=== PATIENT | female | born 1960 | race Two or more races ===

== ENCOUNTER 2025-03-28 21:13 | Emergency (ER) | payer OTHER ==
[~2025-03-28] VITALS: Ht 162.6 cm; Wt 75.7 kg
[2025-03-28] MEDS ORDERED: SUMA100T16 PO (21:30)
[2025-03-28] MEDS ORDERED: HYDR12.55 PO (21:30)
[2025-03-28] MEDS ORDERED: AMIT25TA9 PO (21:30)
[2025-03-28] MEDS ORDERED: PROP20TA7 PO (21:30)
[2025-03-28] MEDS ORDERED: METOCLOPRAMIDE HCL 10 MG/2 ML VIAL ONE (22:55)
[2025-03-28] MEDS: IV NORMAL SALINE 1000 ML BAG IV ONE (22:58)
[2025-03-28] MEDS: METOCLOPRAMIDE HCL 10 MG/2 ML VIAL IV ONE (22:59)
[2025-03-28 23:00] LABS: BASOPHILS % (AUTO) 0.6 % (0.0-2.0); EOSINOPHILS % (AUTO) 0.2 % (0.0-7.0); HEMATOCRIT 43.5 % (31.2-41.9); HEMOGLOBIN 14.7 g/dL (10.9-14.3); LYMPHOCYTES # (AUTO) 1.3 K/uL (0.8-4.8); LYMPHOCYTES % (AUTO) 16.2 % (20.5-51.5); MEAN CORPUSCULAR HEMOGLOBIN 29.5 uug (24.7-32.8); MEAN CORPUSCULAR HGB CONC 34 g/dL (32.3-35.6); MEAN CORPUSCULAR VOLUME 87.6 fL (75.5-95.3); MONOCYTES # (AUTO) 0.4 K/uL (0.1-1.30); MONOCYTES % (AUTO) 4.6 % (0.0-11.0); NEUTROPHILS # (AUTO) 6.5 K/uL (1.8-8.9); NEUTROPHILS % (AUTO) 78.4 % (38.5-71.5); PLATELET COUNT (AUTO) 285 K/uL (179-408); RED BLOOD CELL COUNT(AUTO) 4.97 MIL/uL (3.63-4.92); RED CELL DISTRIBUTION WIDTH 13.8 % (12.3-17.7); WHITE BLOOD COUNT (AUTO) 8.3 K/uL (3.8-11.8)
[2025-03-28 23:02] LABS: DIFFERENTIAL COMMENT 1
[2025-03-28 23:06] LABS: CALCIUM 8.8 mg/dL (8.5-10.1); CARBON DIOXIDE 29 mmol/L (21-32); CHLORIDE 103 mmol/L (98-107); CREATININE 0.9 mg/dL (0.6-1.3); GLUCOSE 107 mg/dL (74-106); SODIUM SERUM 140 mmol/L (136-145); UREA NITROGEN, BLOOD 12 mg/dL (7-18)
[2025-03-28 23:21] LABS: ALANINE AMINOTRANSFERASE 22 U/L (14-59); ALBUMIN 3.6 g/dL (3.4-5.0); ALKALINE PHOSPHATASE 98 U/L (50-136); ASPARTATE AMINOTRANSFERASE 21 U/L (15-37); BILIRUBIN,DIRECT 0.1 mg/dL (0.0-0.2); BILIRUBIN,TOTAL 0.6 mg/dL (0.2-1.0); NT-PRO BNP 123 pg/mL (0-125); TOTAL PROTEIN, SERUM 7.8 g/dL (6.4-8.2)
[2025-03-29] MEDS ORDERED: IV NORMAL SALINE 250 ML IV ONE (00:09)
[2025-03-29] MEDS ORDERED: SWABABLE VALVE TRANSFER SET EA MC ONE (00:09)
[2025-03-29] MEDS ORDERED: IOHEXOL 350 100 ML INFUS..BTL ONE (00:09)
[2025-03-29] MEDS ORDERED: AMLO5TAB4 PO (01:41)
[2025-03-29 01:50] VITALS: BP 122/77; O2SAT 98
== END 2025-03-29 01:51 | disposition home or self-care (01) ==
LOC: ER 21:21
DX: I10 Essential (primary) hypertension (principal); G43.909 Migraine, unspecified, not intractable, without status migrainosus; R79.89 Other specified abnormal findings of blood chemistry; R07.9 Chest pain, unspecified; R11.0 Nausea; Z79.899 Other long term (current) drug therapy; Z88.0 Allergy status to penicillin
CPT/HCPCS: 99285; 70450; 96374; 71045; 96361; 80076; 80048; 83880; 85025; 85379; 85730; 84484 ×2; 36415 ×2; 71275; 93005; J2765; J7040; Q9967; A4606; A4663